=== PATIENT | male | born 1995 | race Caucasian/White ===

== ENCOUNTER 2019-12-27 14:18 | Emergency (ER) | payer MEDICAID ==
[~2019-12-27] VITALS: Ht 182.9 cm; Wt 88.0 kg
[2019-12-28 01:41] VITALS: BP 131/90
== END 2019-12-28 01:43 | disposition home or self-care (01) ==
LOC: ER 14:44
DX: F15.10 Other stimulant abuse, uncomplicated (principal); F41.9 Anxiety disorder, unspecified
CPT/HCPCS: 93005; 99283

== ENCOUNTER 2019-12-28 02:50 | Emergency (ER) | payer MEDICAID ==
[~2019-12-28] VITALS: Ht 182.9 cm; Wt 91.0 kg
[2019-12-28 03:21] VITALS: BP 149/97
== END 2019-12-28 08:21 | disposition left against medical advice (07) ==
LOC: ER 02:50
DX: F15.10 Other stimulant abuse, uncomplicated (principal); F17.200 Nicotine dependence, unspecified, uncomplicated
CPT/HCPCS: 99283

== ENCOUNTER 2019-12-28 11:39 | Emergency (ER) | payer MEDICAID ==
[~2019-12-28] VITALS: Ht 182.9 cm; Wt 91.0 kg
[2019-12-29 12:32] LABS: CLARITY URINE CLOUDY (CLEAR); COLOR URINE DARK YELLOW (YELLOW); KETONES URINE TRACE (NEGATIVE); LEUKOCYTE ESTERASE URINE NEGATIVE (NEGATIVE); NITRITE URINE NEGATIVE (NEGATIVE); OCCULT BLOOD URINE NEGATIVE (NEGATIVE); PH URINE 5.5 (4.5-8.0); PROTEIN URINE NEGATIVE (NEGATIVE); SPECIFIC GRAVITY URINE 1.033 (1.005-1.030)
[2019-12-29 13:02] LABS: *AMPHETAMINES SCREEN URINE PRESUMTIVE POSITIVE (NEGATIVE); CANNABINOID URINE SCREEN PRESUMTIVE POSITIVE (NEGATIVE)
[2019-12-29 13:03] LABS: *BARBITURATES SCREEN URINE NEGATIVE (NEGATIVE); *BENZODIAZEPINES SCREEN URINE NEGATIVE (NEGATIVE); *COCAINE SCREEN URINE NEGATIVE (NEGATIVE); METHADONE URINE SCREEN NEGATIVE (NEGATIVE); OPIATES URINE SCREEN NEGATIVE (NEGATIVE)
[2019-12-29 13:04] LABS: PHENCYCLIDINE URINE SCREEN NEGATIVE (NEGATIVE)
[2019-12-29 22:29] VITALS: BP 143/97
== END 2019-12-29 22:54 ==
LOC: ER 11:39
DX: R44.0 Auditory hallucinations (principal); F17.200 Nicotine dependence, unspecified, uncomplicated; Z59.0 Homelessness
CPT/HCPCS: 80305; 81003; 99284; Z7610